=== PATIENT | male | born 1975 | race Caucasian/White ===

== ENCOUNTER 2022-04-03 14:52 | Outpatient (CLI) | payer BC, SELFPAY ==
[2022-04-03 14:27] LABS: Albumin* 4.4 g/dL (3.3-5.0); Chloride* 106 mmol/L (96-114); Sodium* 138 mmol/L (135-149)
[2022-04-03 14:28] LABS: Potassium* 4.7 mmol/L (3.6-5.1)
[2022-04-03 14:29] LABS: Cholesterol* 156 mg/dL (90-199)
[2022-04-03 14:30] LABS: Alanine Aminotransferase* 34 U/L (4-50); Alkaline Phosphatase* 70 U/L (40-150); Aspartate Amino Transferase* 22 U/L (12-35); Bilirubin Total* 0.6 mg/dL (0.1-1.5); Blood Urea Nitrogen* 19 mg/dL (5-24); Calcium* 9.3 mg/dL (8.4-10.6); Carbon Dioxide* 28 mmol/L (20-32); Creatinine* 0.8 mg/dL (0.5-1.5); Estimated Glomerular Filt Rate 111 ml/min; Glucose* 116 mg/dL (60-115); Total Protein* 6.7 g/dL (6.0-8.3); Triglycerides* 149 mg/dL (40-149)
[2022-04-03 14:31] LABS: HDL Cholesterol* 52 mg/dL (>=40); LDL Cholesterol Calculated 74 mg/dL (<100)
== END 2022-04-03 14:53 | disposition home or self-care (01) ==
PROVIDERS: PCP Physician Assistant Medical; Visit Provider Physician Assistant Medical
DX: Z00.00 Encounter for general adult medical examination without abnormal findings (principal); E78.5 Hyperlipidemia, unspecified; I10 Essential (primary) hypertension; R73.03 Prediabetes
CPT/HCPCS: 80053; 80061

== ENCOUNTER 2023-03-27 09:14 | Outpatient (CLI) | payer BC, SELFPAY | END 2023-03-27 09:15 | disposition home or self-care (01) | PROVIDERS: PCP Physician Assistant Medical; Visit Provider Physician Assistant Medical | DX: I10 Essential (primary) hypertension (principal); R73.03 Prediabetes; E78.5 Hyperlipidemia, unspecified; J45.990 Exercise induced bronchospasm | CPT/HCPCS: 80053; 80061 ==

== ENCOUNTER 2024-04-12 10:06 | Outpatient (CLI) | payer BC, SELFPAY | END 2024-04-12 10:07 | disposition home or self-care (01) | PROVIDERS: PCP Physician Assistant Medical; Referring Provider Physician Assistant Medical; Visit Provider Physician Assistant Medical | DX: I10 Essential (primary) hypertension (principal); E78.5 Hyperlipidemia, unspecified; R73.03 Prediabetes; E78.2 Mixed hyperlipidemia; J45.990 Exercise induced bronchospasm; Z13.29 Encounter for screening for other suspected endocrine disorder | CPT/HCPCS: 80053; 80061; 84443 ==

== ENCOUNTER 2025-05-03 08:24 | Outpatient (CLI) | payer BC, SELFPAY | END 2025-05-03 08:25 | disposition home or self-care (01) | LOC: NFLDREF 05-08 17:07 | PROVIDERS: PCP Physician Assistant Medical; Referring Provider Physician Assistant Medical; Visit Provider Physician Assistant Medical | DX: R73.03 Prediabetes (principal); I10 Essential (primary) hypertension; E78.2 Mixed hyperlipidemia; Z00.00 Encounter for general adult medical examination without abnormal findings | CPT/HCPCS: 80053; 80061; 84443 ==